=== PATIENT | male | born 1935 | race Caucasian/White ===

== ENCOUNTER 2017-08-24 14:20 | Outpatient (CLI) | payer MEDICARE, OTHER ==
[2017-08-24 16:24] LABS: eGFR (African) > 60; eGFR (Non-African) > 60
== END 2017-08-24 14:30 ==
LOC: LAB 14:20
PROVIDERS: ATTEND Nurse Practitioner Family
DX: N28.9 Disorder of kidney and ureter, unspecified (principal)
CPT/HCPCS: 36415; 80048

== ENCOUNTER 2017-08-31 13:05 | Outpatient (CLI) | payer MEDICARE, OTHER ==
[2017-08-31 13:52] LABS: eGFR (African) > 60; eGFR (Non-African) > 60
== END 2017-08-31 13:06 ==
LOC: LAB 13:05
PROVIDERS: ATTEND Nurse Practitioner Family
DX: N28.9 Disorder of kidney and ureter, unspecified (principal); E87.6 Hypokalemia
CPT/HCPCS: 36415; 80048